=== PATIENT | female | born 1945 | race Caucasian/White ===

== ENCOUNTER 2018-07-08 11:45 | Inpatient (IN) | payer OTHER ==
[~2018-07-08] VITALS: Ht 157.5 cm; Wt 71.7 kg
[~2018-07-08 11:45] MED LIST: NAPROXEN500 M1 PO
[2018-07-08] MEDS ORDERED: ENALAPRIL MALEA10 MG PO (16:53)
[2018-07-08] MEDS ORDERED: SYNTHROID88 MCG PO (16:53)
[2018-07-08] MEDS ORDERED: OMEPRAZOLE20 M1 PO (16:54)
[2018-07-08] MEDS ORDERED: METFORMIN HCL500 MG PO (16:54)
[2018-07-08] MEDS ORDERED: SIMVASTATIN10 MG PO (16:54)
[2018-07-10] MEDS ORDERED: COLACE100 MG PO (14:13)
[2018-07-10] MEDS ORDERED: NEURONTIN800 MG PO (14:13)
[2018-07-10] MEDS ORDERED: AMOX-CLAV 875-1 EACH PO (14:14)
[2018-07-10] MEDS ORDERED: CLONAZEPAM0.5 MG PO (14:15)
[2018-07-10] MEDS ORDERED: PERCOCET 5-3251 EACH PO (14:15)
[2018-07-10] MEDS ORDERED: MEDROLPACK PO (14:16)
== END 2018-07-11 20:15 | DRG 455 ==
LOC: O/R 07-10 05:42 → SURH 07-10 05:42
PROVIDERS: ADMIT Orthopaedic Surgery Orthopaedic Surgery of the Spine
PROC: 0SG1071 Fusion of 2 or more Lumbar Vertebral Joints with Autologous Tissue Substitute, Posterior Approach, Posterior Column, Open Approach (ICD-10-PCS; 2018-07-10)
PROC: 0SG10AJ Fusion of 2 or more Lumbar Vertebral Joints with Interbody Fusion Device, Posterior Approach, Anterior Column, Open Approach (ICD-10-PCS; 2018-07-10)
PROC: 0ST20ZZ Resection of Lumbar Vertebral Disc, Open Approach (ICD-10-PCS; 2018-07-10)
PROC: 07DS3ZZ Extraction of Vertebral Bone Marrow, Percutaneous Approach (ICD-10-PCS; 2018-07-10)
PROC: 0SG10A0 Fusion of 2 or more Lumbar Vertebral Joints with Interbody Fusion Device, Anterior Approach, Anterior Column, Open Approach (ICD-10-PCS; principal; 2018-07-10 15:15)
DX: M43.16 Spondylolisthesis, lumbar region (principal); M51.16 Intervertebral disc disorders with radiculopathy, lumbar region; M48.062 Spinal stenosis, lumbar region with neurogenic claudication; M41.86 Other forms of scoliosis, lumbar region; E11.9 Type 2 diabetes mellitus without complications; I10 Essential (primary) hypertension; E03.8 Other specified hypothyroidism

== ENCOUNTER 2024-08-05 10:30 | Inpatient (IN) | payer OTHER ==
[~2024-08-05] VITALS: Ht 152.4 cm; Wt 65.8 kg
[~2024-08-05 10:30] MED LIST changes: +AMOX-CLAV 875-1 EACH PO; +CLONAZEPAM0.5 MG PO; +COLACE100 MG PO; +ENALAPRIL MALEA10 MG PO; +MEDROLPACK PO; +METFORMIN HCL500 MG PO; +NEURONTIN800 MG PO; +OMEPRAZOLE20 M1 PO; +PERCOCET 5-3251 EACH PO; +SIMVASTATIN10 MG PO; +SYNTHROID88 MCG PO
[2024-08-05] MEDS ORDERED: NAMENDA XR7 MG PO (12:34)
[2024-08-05] MEDS ORDERED: CENTRUM ADULTS1 EACH PO (12:35)
[2024-08-05 12:40] VITALS: BP 150/81
[2024-08-05] MEDS ORDERED: WELLBUTRIN SR150 MG PO (12:40)
[2024-08-05 13:52] LABS: RH POSITIVE
[2024-08-11] MEDS ORDERED: KETOROLAC TROMETHAMINE 60 MG VIAL IM ONE (06:56)
[2024-08-11] MEDS ORDERED: BUPIVACAINE HCL 0.5% 50ML VIAL ONE (06:57)
[2024-08-11] MEDS ORDERED: LIDOCAINE HCL 1%/EPINEPHRINE 20ML VIAL IJ ONE (06:57)
[2024-08-11] MEDS ORDERED: METHYLPREDNISOLONE ACETATE 80 MG/ML VIAL ONE (06:57)
[2024-08-11] MEDS ORDERED: CEFOXITIN SODIUM 2,000 MG VIAL IV ONE (07:04)
[2024-08-11] MEDS ORDERED: TRANEXAMIC ACID 100MG/1ML (1000MG) AMPUL IV ONE (07:04)
[2024-08-11] MEDS ORDERED: GENTAMICIN SULFATE 40 MG/ML VIAL IV SCH (09:39)
[2024-08-11] MEDS ORDERED: MORPHINE SULFATE 4 MG/ML CARTRIDGE IV PRN (09:45)
[2024-08-11] MEDS ORDERED: ONDANSETRON HCL 2 MG/ML VIAL IV PRN (09:45)
[2024-08-11] MEDS ORDERED: SODIUM CHLORIDE 0.45 % 1,000 ML IV SCH (09:45)
[2024-08-11] MEDS ORDERED: MORPHINE SULFATE 2 MG/ML CARTRIDGE IV ONE (09:45)
[2024-08-11] MEDS ORDERED: MORPHINE SULFATE 4 MG/ML VIAL IV ONE ×2 (10:15→10:45)
[2024-08-11] MEDS ORDERED: GENTAMICIN SULFATE 40 MG/ML VIAL ONE (10:30)
[2024-08-11] MEDS ORDERED: ENALAPRILAT DIHYDRATE 1.25 MG/ML VIAL IV ONE ×3 (10:45→11:15)
[2024-08-11 11:46] LABS: HEMATOCRIT 30.5 % (36.0-45.00); HEMOGLOBIN 10.2 g/dL (12.0-15.00); RED BLOOD COUNT 3.37 M/uL (4.00-6.00)
[2024-08-11] MEDS ORDERED: CEFAZOLIN SODIUM 1,000 MG VIAL IV SCH (12:00)
[2024-08-11] MEDS ORDERED: CEFAZOLIN SODIUM 1,000 MG VIAL ONE (14:48)
[2024-08-11] MEDS ORDERED: MetFORMIN HCL 500 MG TABLET PO SCH (17:00)
[2024-08-12 00:32] VITALS: BP 152/65; O2SAT 99
[2024-08-12] MEDS ORDERED: LEVOTHYROXINE SODIUM 88 MCG TABLET PO SCH (06:00)
[2024-08-12] MEDS ORDERED: ACETAMINOPHEN WITH CODEINE 1 UDTAB TABLET PO PRN (08:00)
[2024-08-12] MEDS ORDERED: BUPROPION HCL 150 MG TABLET.SA PO SCH (09:00)
[2024-08-12] MEDS ORDERED: BACITRACIN 28.35 GM OINT.TUBE TOP SCH (09:00)
[2024-08-12] MEDS ORDERED: SENNA/DOCUSATE SODIUM 1 TAB TABLET PO SCH (09:00)
[2024-08-12] MEDS ORDERED: CELECOXIB 200 MG CAPSULE PO SCH (09:00)
[2024-08-12] MEDS ORDERED: IRON FUM,PS/FOLIC/BCOMP,C NO.9 1 CAP CAPSULE PO SCH (09:00)
[2024-08-12] MEDS ORDERED: RIVAROXABAN 10 MG TAB PO SCH (09:00)
[2024-08-12] MEDS ORDERED: ENALAPRIL MALEATE 10 MG TABLET PO SCH ×2 (09:00)
[2024-08-12 09:10] LABS: HEMOGLOBIN 9.2 g/dL (12.0-15.00); MEAN CELL VOLUME 89.9 fL (80.00-100.00); MEAN CORPUSCULAR HEMOGLOBIN 30.6 pg (27.00-32.0); PLATELET COUNT 213 K/uL (150-450); RED CELL DISTRIBUTION WIDTH 13.3 % (11.5-14.5)
[2024-08-12 10:57] VITALS: BP 155/73; O2SAT 95
[2024-08-12 16:00] VITALS: BP 154/82; O2SAT 99
[2024-08-12] MEDS ORDERED: SOD FERRIC GLUC COMPLX/SUCROSE 125 MG in 0.9 % SODIUM CHLORIDE 100 ML IV SCH (17:00)
[2024-08-13] VITALS: BP 119/62; O2SAT 96
[2024-08-13 07:40] LABS: HEMATOCRIT 23.9 % (36.0-45.00); MEAN CELL VOLUME 89.6 fL (80.00-100.00); MEAN CORPUSCULAR HGB CONC 34.7 g/dl (32.0-36.0); PLATELET COUNT 202 K/uL (150-450); RED BLOOD COUNT 2.67 M/uL (4.00-6.00); RED CELL DISTRIBUTION WIDTH 13.2 % (11.5-14.5)
[2024-08-13 07:42] LABS: HEMOGLOBIN 8.3 g/dL (12.0-15.00)
[2024-08-13] MEDS ORDERED: FUROsemide 20 MG/2 ML VIAL IV SCH (08:15)
[2024-08-13] MEDS ORDERED: SULFAMETHOXAZOLE/TRIMETHOPRIM DS 1 TAB PO SCH (09:00)
[2024-08-13 09:54] LABS: HEMATOCRIT 26.6 % (36.0-45.00); MEAN CELL VOLUME 89.6 fL (80.00-100.00); MEAN CORPUSCULAR HGB CONC 33.9 g/dl (32.0-36.0); PLATELET COUNT 215 K/uL (150-450); RED BLOOD COUNT 2.97 M/uL (4.00-6.00); RED CELL DISTRIBUTION WIDTH 13.5 % (11.5-14.5)
[2024-08-13 09:55] LABS: MEAN CORPUSCULAR HEMOGLOBIN 30.3 pg (27.00-32.0)
[2024-08-13 10:41] VITALS: BP 132/71; O2SAT 98
[2024-08-13 10:51] LABS: ALBUMIN 3.3 gm/dL (3.4-5.0); BILIRUBIN TOTAL 0.51 mg/dL (0.3-1.2); CALCIUM 9.2 mg/dL (8.5-10.1); CREATININE SERUM 0.64 mg/dL (0.55-1.02); GFR 89.51; GLOBULINA 3.1 G/DL (2.4-3.5); POTASSIUM 4.7 mEq/L (3.5-5.1); TOTAL PROTEIN 6.4 gm/dL (6.4-8.2)
[2024-08-13 17:50] VITALS: BP 138/63; O2SAT 98
[2024-08-14 01:36] VITALS: BP 132/68; O2SAT 95
[2024-08-14] MEDS ORDERED: INTEGRA PLUS C1 EACH PO (08:11)
[2024-08-14] MEDS ORDERED: XARELTO10 MG PO (08:11)
[2024-08-14] MEDS ORDERED: Septra Ds Tablet PO (08:11)
[2024-08-14] MEDS ORDERED: TRAM1TAB98 PO (08:12)
[2024-08-14] MEDS ORDERED: TRAMADOL HCL 50 MG TABLET PO PRN (08:15)
[2024-08-14 10:35] VITALS: BP 145/70; O2SAT 98
[2024-08-14 14:04] LABS: HEMATOCRIT 29.3 % (36.0-45.00); HEMOGLOBIN 10.1 g/dL (12.0-15.00); MEAN CORPUSCULAR HEMOGLOBIN 30.5 pg (27.00-32.0); MEAN CORPUSCULAR HGB CONC 34.6 g/dl (32.0-36.0); PLATELET COUNT 242 K/uL (150-450); RED BLOOD COUNT 3.33 M/uL (4.00-6.00)
== END 2024-08-14 14:49 | DRG 470 ==
LOC: O/R 08-11 05:12 → SURH 08-11 10:30
PROVIDERS: ADMIT Orthopaedic Surgery Sports Medicine; ATTEND Orthopaedic Surgery Sports Medicine
PROC: 0SRD0JZ Replacement of Left Knee Joint with Synthetic Substitute, Open Approach (ICD-10-PCS; principal; 2024-08-11 10:30)
PROC: 30233N1 Transfusion of Nonautologous Red Blood Cells into Peripheral Vein, Percutaneous Approach (ICD-10-PCS; 2024-08-13)
DX: M17.12 Unilateral primary osteoarthritis, left knee (principal); D62 Acute posthemorrhagic anemia; Z96.652 Presence of left artificial knee joint

== ENCOUNTER 2024-09-05 17:45 | Emergency (ER) | payer OTHER ==
[~2024-09-05] VITALS: Ht 152.4 cm; Wt 64.9 kg
[~2024-09-05 17:45] MED LIST changes: +CENTRUM ADULTS1 EACH PO; +INTEGRA PLUS C1 EACH PO; +NAMENDA XR7 MG PO; +Septra Ds Tablet PO; +TRAM1TAB98 PO; +WELLBUTRIN SR150 MG PO; +XARELTO10 MG PO
[2024-09-05 21:00] LABS: HEMATOCRIT 31.6 % (36.0-45.00); HEMOGLOBIN 10.8 g/dL (12.0-15.00); MEAN CELL VOLUME 91.3 fL (80.00-100.00); MEAN CORPUSCULAR HEMOGLOBIN 31.1 pg (27.00-32.0); PLATELET COUNT 278 K/uL (150-450); RED BLOOD COUNT 3.46 M/uL (4.00-6.00); RED CELL DISTRIBUTION WIDTH 14.9 % (11.5-14.5)
[2024-09-05 21:08] LABS: INR 1.1; PARTIAL THROMBOPLASTIN TIME 30.5 SECONDS (22.0-34.0); PROTHROMBIN TIME 11.9 SECONDS (9.0-11.5)
[2024-09-05 21:12] LABS: ALBUMIN 3.8 gm/dL (3.4-5.0); BILIRUBIN TOTAL 0.27 mg/dL (0.3-1.2); CALCIUM 9.4 mg/dL (8.5-10.1); CREATININE SERUM 0.74 mg/dL (0.55-1.02); GFR 75.71; GLOBULINA 3.7 G/DL (2.4-3.5); POTASSIUM 4.34 mEq/L (3.5-5.1); TOTAL PROTEIN 7.5 gm/dL (6.4-8.2)
== END 2024-09-05 23:37 | disposition home or self-care (01) ==
LOC: ER 17:46
PROVIDERS: Emergency Medicine
DX: R60.0 Localized edema (principal); Z96.652 Presence of left artificial knee joint; Z91.013 Allergy to seafood; Z91.018 Allergy to other foods